=== PATIENT | male | born 1955 | race Two or more races ===

== ENCOUNTER 2022-04-26 17:16 | Inpatient (IN) | payer MEDICARE, OTHER ==
[~2022-04-26] VITALS: Ht 170.2 cm; Wt 59.0 kg
[2022-04-26] MEDS ORDERED: CARV25TA2 PO (17:29)
[2022-04-26] MEDS ORDERED: BLOOD SUGAR DIAGNOSTIC 1 EACH STRIP IN ONE (18:00)
[2022-04-26] MEDS ORDERED: ACETAMINOPHEN 325 MG TABLET PO PRN (18:00)
[2022-04-26] MEDS ORDERED: MAG HYDROX/AL HYDROX/SIMETH 30 ML UDC PO PRN (18:00)
[2022-04-26] MEDS ORDERED: MAGNESIUM HYDROXIDE 30 ML UDC PO PRN (18:00)
[2022-04-26] MEDS ORDERED: LORAZEPAM 0.5 MG TABLET PO PRN (18:00)
--- NOTE | 2022-04-26 18:00 | NUR ---
RECEIVED PT FROM [facility] ON 515 ORIGINALLY FROM HOME BROUGHT TO ER BY FAMILY MEMBER FOR HALLUCINATION. AMBULATORY NO ACUTE DISTRESS NOTED. ADMITTING ORDERS FROM DR DEE RECEIVED AND CARRIED OUT. NO VALUABLES OR CONTRABAND FOUND. ON FACE TO FACE ASSESSMENT NO SI /HI REPORTED. PT REPORTS AUDIO HALLUCINATIONS FOLLOWING ALCOHOL INTAKE ( ON DAILY BASIC/ HALF BOTTLE OF MANISH) LAST ALCOHOL INTAKE REPORTED 2 WEEKS AGO. PT IS AMBULATORY WITH NO SKIN ISSUES.
[2022-04-26 18:01] VITALS: BP 127/82
--- NOTE | 2022-04-26 20:10 | NUR ---
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
--- NOTE | 2022-04-26 20:12 | NUR ---
RN NOTES: PATIENT RESTING IN HIS ROOM. NO APPARENT DISTRESS NOTED, PATIENT EASILY AGITATED, HALLUCINATING , PARANOID , ALL NEEDS ATTENDED AND ANTICIPATED, NEEDS FREQUENTLY REDIRECTIONS ,DENIES SI/HI/AVH AT THIS TIME. SAFETY PRECAUTIONS MAINTAINED. WILL CONTINUE TO MONITOR Q15MIN ROUNDS FOR SAFETY AND BEHAVIOR.
[2022-04-26 20:25] VITALS: BP 142/82
[2022-04-26 21:30] VITALS: BP 132/80
--- NOTE | 2022-04-26 23:38 | NUR ---
RN NOTES: ANXIETY PT.C/O FEELING ANXIOUS,RESTLESS ,PARANOID , PRN ATIVAN 0.5 MG PO GIVEN , WILL CONTINUE TO MONITOR.
[2022-04-27 06:53] LABS: ALBUMIN 3.2 g/dL (3.4-5.0); BILIRUBIN,TOTAL 0.4 mg/dL (0.2-1.0); CALCIUM, SERUM 8.7 mg/dL (8.5-10.1); CREATININE 0.9 mg/dL (0.6-1.3); POTASSIUM 3.3 mmol/L (3.5-5.1); TOTAL PROTEIN, SERUM 6.6 g/dL (6.4-8.2)
[2022-04-27 08:00] VITALS: BP 166/99
[2022-04-27] MEDS ORDERED: POTASSIUM CHLORIDE 20 MEQ TAB.PRT.SR PO SCH ×2 (10:30→12:30)
[2022-04-27 16:00] VITALS: BP 150/86
[2022-04-27] MEDS: CARVEDILOL 12.5 MG TABLET PO SCH (17:16)
[2022-04-27] MEDS: TEMAZEPAM 7.5 MG CAPSULE PO PRN (20:41)
[2022-04-27 21:14] VITALS: BP 157/88
[2022-04-27] MEDS: MIRTAZAPINE 15 MG TABLET PO SCH (21:23)
[2022-04-28 04:00] VITALS: BP 159/78
[2022-04-28 08:00] VITALS: BP 140/88
[2022-04-28] MEDS: CARVEDILOL 12.5 MG TABLET PO SCH ×2 (08:53→16:13)
--- NOTE | 2022-04-28 09:59 | NUR ---
JONO Clinical Note: Pt placed on a 5150 hold for GD. Pt was brought to the hospital due to hallucinations. Patient currently resides at home located at [address] [place] [address]; ([phone]). Patient would want to return back home upon discharge. JONO will contact pt's daughter Zenia ([phone]) to discuss treatment/discharge plan.
--- NOTE | 2022-04-28 09:59 | NUR ---
JONO Initial Discharge Note: Patient currently resides at home located at [address] [place] [address]; ([phone]). Patient would want to return back home upon discharge. JONO will contact pt's daughter Zenia ([phone]) to discuss treatment/discharge plan. JONO will work with the MD, family, and treatment team to help coordinate appropriate discharge.
--- NOTE | 2022-04-28 10:01 | NUR ---
Social Work Note/Substance Abuse Intervention: Patient was provided with a brief substance abuse intervention and referred to [facility] ([phone]), [facility] ([phone]), and [facility] ([phone]) for drinking alcohol excessively.
--- NOTE | 2022-04-28 14:10 | NUR ---
Treatment Plan: Pt refused to sign treatment plan and was suspicious.
--- NOTE | 2022-04-28 14:44 | NUR ---
JONO Family Contact: JONO spoke with patient's daughter Priyanka ([phone]) and discussed treatment/discharge plan. Priyanka was concerned about pt taking ativan because she stated it makes him "crazy". She reported to let the doctor know. She stated clondine medication has been helping him. She would want pt back home upon discharge. JONO shared this concern of medications to Dr. Branch.
[2022-04-28 16:00] VITALS: BP 150/90
[2022-04-28 19:41] VITALS: BP 145/80
[2022-04-28] MEDS: MIRTAZAPINE 15 MG TABLET PO SCH (20:20)
[2022-04-28] MEDS: TEMAZEPAM 7.5 MG CAPSULE PO PRN (20:21)
[2022-04-29 06:40] VITALS: BP 145/82
[2022-04-29 08:00] VITALS: BP 115/61
[2022-04-29] MEDS: CARVEDILOL 12.5 MG TABLET PO SCH ×2 (08:27→16:26)
--- NOTE | 2022-04-29 09:32 | NUR ---
JONO Coordination of Care: Patient will follow up with (Stable Manager) [facility] [address] [facility] [facility] [place] [address]; ([phone]) at April 11 between 3PM who will monitor and provide psychotropic medications. Addendum: 05/01/22 at 0908 by JONO MORRIS Correction May 12
[2022-04-29 16:00] VITALS: BP 136/71
[2022-04-29 19:36] VITALS: BP 145/81
--- NOTE | 2022-04-29 19:49 | NUR ---
noc rn opening received patient in bed, a/ox3. no s/s of apparent distress in room air. no c/o at this time. will do Q15 visual checks and rounding with staff to ensure patient safety.
[2022-04-29] MEDS: MIRTAZAPINE 15 MG TABLET PO SCH (21:17)
[2022-04-29] MEDS: TEMAZEPAM 7.5 MG CAPSULE PO PRN (21:17)
--- NOTE | 2022-04-29 21:17 | NUR ---
noc rn note patient request for sleeping medication. Given restoril 7.5mg as ordered PRN. will re-assess.
[2022-04-30 08:00] VITALS: BP 139/80
[2022-04-30] MEDS: CARVEDILOL 12.5 MG TABLET PO SCH ×2 (08:19→16:29)
[2022-04-30 16:00] VITALS: BP 134/74
--- NOTE | 2022-04-30 18:12 | NUR ---
RN NOTE PATIENT RESTING IN BED. A/O X3, VERBALLY RESPONSIVE AND ABLE TO MAKE NEEDS KNOWN. NO SIGNS OF ACUTE DISTRESS NOTED. STABLE ON ROOM AIR. BREATHING EVEN AND UNLABORED. COMPLIANT WITH MEDICATIONS. PATIENT CALM AND COOPERATIVE WITH CARE. STAYED IN HIS ROOM THROUGHOUT THE SHIFT. NO EPISODES OF UNTOWARD BEHAVIOR NOTED. SAFETY MEASURE MAINTAINED. WILL ENDORSE TO NEXT SHIFT FOR CONTINUITY OF CARE.
--- NOTE | 2022-04-30 19:40 | NUR ---
NOC RN OPENING NOTE RECEIVED PATIENT IN BED, AWAKE, ALERT AND ORIENTED X 3. ABLE TO MAKE NEEDS KNOWN. AFEBRILE AND NOT IN ANY FORM OF ACUTE DISTRESS. BREATHING EVEN AND NON LABORED. NO C/O PAIN OR DISCOMFORT. NO BEHAVIOR ISSUES NOTED AT THIS TIME. SAFETY MEASURES IN PLACE. KEPT BED IN LOCKED AND IN LOW POSITION. SIDE RAILS UP X2.
[2022-04-30 20:10] VITALS: BP 126/70
[2022-04-30] MEDS: MIRTAZAPINE 15 MG TABLET PO SCH (21:14)
[2022-04-30] MEDS: TEMAZEPAM 7.5 MG CAPSULE PO PRN (21:49)
--- NOTE | 2022-04-30 21:50 | NUR ---
GPS RN NOTE: INSOMNIA PATIENT VERBALIZED SLEEPLESSNESS AND INSISTED TO TAKE SLEEPING MEDICINE AT THIS TIME. PRN RESTORIL 7.5 MG PO ADMINISTERED ORDERED BY MD. WILL CONTINUE TO MONITOR FOR ANY CHANGE OF CONDITION.
[2022-05-01 08:00] VITALS: BP 145/85
[2022-05-01 08:39] VITALS: BP 145/85
[2022-05-01] MEDS: CARVEDILOL 12.5 MG TABLET PO SCH (08:39)
--- NOTE | 2022-05-01 09:30 | NUR ---
Dr. Branch gave an order to D/C hold and D/C home and to follow up with the recycle driver who will monitor and provide psychotropic medications. 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
--- NOTE | 2022-05-01 13:45 | NUR ---
RN- DISCHARGE NOTES PATIENT HAD A DISCHARGE FROM DR. DEE ( PSYCHIATRIST) DR. CAPUTO ( EVENT HOST) MEDICALLY CLEARED PATIENT FOR DISCHARGE.PATIENT DID NOT VERBALIZE SI/HI,DENIES VISUAL/AUDITORY HALLUCINATIONS AT THE TIME OF DISCHARGE. PATIENT SIGN ALL DISCHARGE PAPERS WITH UNDERSTANDING.INSTRUCTED PATIENT TO GO TO THE NEAREST EMERGENCY ROOM OR CALL 911 IN CASE OF EMERGENCY, ALSO INSTRUCTED TO FOLLOW UP WITH PCP ON OR NEEDED. PATIENT WAS DIRECTOR DANCE BY DAUGHTER EZRA ([phone]) VIA PRIVATE CAR.ALL BELONGINGS WAS GIVEN TO THE DAUGHTER INCLUDING RX.PATIENT LEFT THE UNIT IN STABLE CONDITION A/O X3 AMBULATORY STEADY GAIT.
[2022-05-01] MEDS ORDERED: ENSURE ENLIVE 237 ML LIQUID (VANILLA) PO SCH (17:00)
== END 2022-05-01 13:45 | disposition home or self-care (01) | DRG 885 ==
LOC: GPS 17:16
PROVIDERS: ADMIT Psychiatry & Neurology Psychosomatic Medicine; ATTEND Internal Medicine
DX: F33.2 Major depressive disorder, recurrent severe without psychotic features (principal); F41.0 Panic disorder [episodic paroxysmal anxiety]; I10 Essential (primary) hypertension; F13.10 Sedative, hypnotic or anxiolytic abuse, uncomplicated; F10.10 Alcohol abuse, uncomplicated; Y90.9 Presence of alcohol in blood, level not specified; Z73.6 Limitation of activities due to disability; R53.1 Weakness; G31.84 Mild cognitive impairment of uncertain or unknown etiology; R27.8 Other lack of coordination; Z91.81 History of falling
CPT/HCPCS: 36415; 70450-TC; 80053-TC; 80061-TC; 82962-TC; 87081-TC